=== PATIENT | male | born 1995 | race Caucasian/White ===

== ENCOUNTER 2020-01-16 08:36 | Emergency (ER) | payer MEDICAID, SELFPAY ==
[~2020-01-16] VITALS: Ht 180.3 cm; Wt 92.1 kg
[~2020-01-16 08:36] MED LIST: CELE20TA PO; CHLO100T30 PO; No Home meds; TRAZ-252 PO; Thorazine PO; XANA0.5T PO
[2020-01-16 09:15] LABS: BASO % 0.6 % (0.0-1.0); EOS # 0.3 10^3/uL (0.0-0.5); EOS % 4.5 % (0.0-3.0); HEMOGLOBIN 15.1 g/dl (13.5-17.5); LYMPH % 43.1 % (24.0-44.0); MEAN CORPUSCULAR HEMOGLOBIN 31.9 pg (27.0-33.0); MEAN CORPUSCULAR HGB CONC 33.6 g/dl (32.0-36.5); MEAN CORPUSCULAR VOLUME 95.1 fl (80.0-96.0); MONO # 0.6 10^3/uL (0.0-0.8); MONO % 8.7 % (0.0-5.0); NEUTROPHILS # 2.9 10^3/uL (1.5-8.5); NEUTROPHILS % 42.8 % (36.0-66.0); PLATELET COUNT, AUTOMATED 198 10^3/uL (150-450); RED BLOOD COUNT 4.73 10^6/uL (4.30-6.10); WHITE BLOOD COUNT 6.9 10^3/uL (4.0-10.0)
[2020-01-16] MEDS ORDERED: NS 1,000 ML IV ONE (09:15)
[2020-01-16] MEDS ORDERED: ONDANSETRON 4MG/2ML VIAL IV ONE (09:15)
[2020-01-16 09:36] LABS: ALBUMIN 4.2 GM/DL (3.2-5.2); ALT/SGPT 20 U/L (12-78); BILIRUBIN,DIRECT 0.2 MG/DL (0.0-0.2); BILIRUBIN,TOTAL 0.8 MG/DL (0.2-1.0); BLOOD UREA NITROGEN 17 MG/DL (7-18); CALCIUM LEVEL 9.1 MG/DL (8.5-10.1); CARBON DIOXIDE LEVEL 27 MEQ/L (21-32); CHLORIDE LEVEL 111 MEQ/L (98-107); CREATININE FOR GFR 0.97 MG/DL (0.70-1.30); GLOMERULAR FILTRATION RATE > 60.0 (>60); GLUCOSE, FASTING 84 MG/DL (70-100); LIPASE 116 U/L (73-393); POTASSIUM SERUM 4.1 MEQ/L (3.5-5.1); SODIUM LEVEL 142 MEQ/L (136-145)
[2020-01-16] MEDS ORDERED: ISOVUE-370 76% 100ML VIAL As Ordered ONE (09:42)
[2020-01-16] MEDS ORDERED: OMEP40CA97 PO (10:23)
[2020-01-16] MEDS ORDERED: SUCR1TA PO (10:23)
[2020-01-16] MEDS ORDERED: ONDA4TAB6 PO (10:23)
[2020-01-16] MEDS ORDERED: GI COCKTAIL 50ML BTL(HYOSCYAMINE/MAALOX/LIDOCAINE VISCOUS)(1:3:1) PO ONE (10:30)
[2020-01-16 10:33] VITALS: BP 125/58
--- NOTE | 2020-01-16 11:32 | REP ---
CT ABDOMEN AND PELVIS WITH IV CONTRAST: TECHNIQUE: Axial contrast-enhanced images from the lung bases to the pubic symphysis using 100 mL Isovue-370 intravenous contrast material with multiplanar reformations. COMPARISON: 10/16/2013 In the visualized lung bases, there is mild thickening along the right major fissure laterally. This is stable. No infiltrate is seen. The liver, spleen, adrenals, pancreas and kidneys are unremarkable. There is no hydronephrosis. There is no abdominal aortic aneurysm. There is no adenopathy. There is no free air or free fluid. There is no bowel wall thickening. There is no pelvic mass. I see no signs of appendicitis. Urinary bladder is not well distended and not well evaluated. IMPRESSION: No acute findings detected. Electronically Signed by Quoc Longo MD 01/17/2020 09:24 A
== END 2020-01-16 10:36 | disposition home or self-care (01) ==
LOC: M ED 08:36
DX: R11.10 Vomiting, unspecified (principal); F12.10 Cannabis abuse, uncomplicated; F17.200 Nicotine dependence, unspecified, uncomplicated; J45.909 Unspecified asthma, uncomplicated; F31.9 Bipolar disorder, unspecified; F41.9 Anxiety disorder, unspecified; Z91.040 Latex allergy status
CPT/HCPCS: 36415; 74177; 80047; 80048; 80076; 83690; 85025; 96361; 96374; 99284; J2405; Q9967

== ENCOUNTER 2021-08-09 00:18 | Emergency (ER) | payer SELFPAY ==
[~2021-08-09] VITALS: Ht 165.1 cm; Wt 59.0 kg
[~2021-08-09 00:18] MED LIST changes: +OMEP40CA4 PO; +ONDA4TAB6 PO; +SUCR1TA PO
[2021-08-09 08:39] VITALS: BP 143/93
== END 2021-08-09 08:38 | disposition home or self-care (01) ==
LOC: M ED 00:18
DX: F10.288 Alcohol dependence with other alcohol-induced disorder (principal); F17.200 Nicotine dependence, unspecified, uncomplicated; Z91.040 Latex allergy status; Z63.79 Other stressful life events affecting family and household